=== PATIENT | female | born 1945 | race Caucasian/White ===

== ENCOUNTER 2016-04-19 11:44 | Outpatient (CLI) | payer MEDICARE | END 2016-04-19 11:45 | LOC: NAVSJIPCSP 11:44 | PROVIDERS: ATTEND Internal Medicine | DX: E78.5 Hyperlipidemia, unspecified (principal); F32.9 Major depressive disorder, single episode, unspecified | CPT/HCPCS: 36415; 80061 ==

== ENCOUNTER 2016-08-01 09:56 | Outpatient (CLI) | payer MEDICARE ==
[2016-08-01 13:19] LABS: Cardiac Risk 3.3 (Less than 4.5)
== END 2016-08-01 09:57 ==
LOC: NAVSJIPCSP 09:56
PROVIDERS: ATTEND Internal Medicine
DX: E78.5 Hyperlipidemia, unspecified (principal)
CPT/HCPCS: 36415; 80061

== ENCOUNTER 2016-08-28 12:55 | Emergency (ER) | payer MEDICARE ==
[2016-08-28] MEDS ORDERED: Lidocaine 1% 20 ML MDV ONE (13:06)
[2016-08-28] MEDS ORDERED: Bacitracin Zinc 1 Packet ONE (13:38)
== END 2016-08-28 13:51 | disposition home or self-care (01) ==
LOC: NAV ERS 12:55
DX: S61.210A Laceration without foreign body of right index finger without damage to nail, initial encounter (principal); E78.5 Hyperlipidemia, unspecified; E78.00 Pure hypercholesterolemia, unspecified; I10 Essential (primary) hypertension; J45.909 Unspecified asthma, uncomplicated; F41.9 Anxiety disorder, unspecified; F32.9 Major depressive disorder, single episode, unspecified; Z79.899 Other long term (current) drug therapy; W25.XXXA Contact with sharp glass, initial encounter
CPT/HCPCS: 12001; J2001

== ENCOUNTER 2016-11-14 10:10 | Outpatient (CLI) | payer MEDICARE ==
[2016-11-14 12:42] LABS: #Eosinphils 0.2 thou/uL (0.0-0.7); #Lymphocytes 1.3 thou/uL (1.20-3.40); #Monocytes 0.6 thou/uL (0.11-0.59); #Neutrophils 3.8 thou/uL (1.40-6.50); %Basophils 0.6 % (0.0-1.0); %Eosinophils 3.2 % (0.0-10.0); %Lymphocytes 22.8 % (21.0-51.0); %Monocytes 9.4 % (0.0-10.0); Mean Corpuscular HGB CONC 32.8 g/dL (32.0-36.0); Mean Corpuscular Volume 94.4 fl (81.0-99.0); Mean Platelet Volume 9.4 fL (7.4-10.4); Platelet Count 141 thou/uL (130-400); RBC Distribution Width 11.5 % (11.5-14.5); Red Blood Cell (RBC) Count 4.21 mill/uL (4.20-5.40); White Blood Cell (WBC) Count 5.9 thou/uL (4.8-10.8)
[2016-11-14 13:52] LABS: Bilirubin Negative (Negative); Blood, Urine Trace (Negative); Clarity Clear (Clear); Glucose, Urine (Dipstick) Negative (Negative); Leukocyte Negative (Negative); Nitrite Negative (Negative); Protein, Urine (Dipstick) Negative (Neg-Trace); Urobilinogen 0.2 mg/dL (0.2-1.0)
[2016-11-14 13:56] LABS: ALT (SGPT) 33 U/L (8-55); AST (SGOT) 32 U/L (5-34); Alkaline Phosphatase 77 U/L (40-150); Anion Gap 15 mmol/L (10-20); BUN (Urea Nitrogen) 16 mg/dL (9.8-20.1); Calc. Creatinine Clearance 0 mL/min (70-130); Calcium 8.9 mg/dL (7.8-10.44); Carbon Dioxide 28 mmol/L (23-31); Cardiac Risk 2.8 (Less than 4.5); Chloride 103 mmol/L (98-107); Cholesterol 178 mg/dl (< 200 Desired); Estimated GFR-MDRD 68; Globulin 2.7 g/dL (2.4-3.5); Glucose 79 mg/dL (83-110); HDL Cholesterol 63 mg/dL (>60 Neg Risk); LDL Cholesterol, Calculated 102 mg/dL; Potassium 4.6 mmol/L (3.5-5.1); Protein, Total 6.7 g/dL (6.0-8.3); Sodium 141 mmol/L (136-145); Triglycerides 65 mg/dL (Less than 150)
[2016-11-14 16:00] LABS: Bacteria/HPF None Seen HPF (None Seen); RBC/HPF 0-3 HPF (0-3); Squamous Epithelial 0-3 HPF (0-3); WBC/HPF None Seen HPF (0-3)
[2016-11-14 18:39] LABS: Hep C IgG Ab Non-Reactive (NonReactive); Hep C Index 0.12 S/CO (0-0.79)
== END 2016-11-14 10:11 | disposition home or self-care (01) ==
LOC: NAVSJIPCSP 10:10
PROVIDERS: ATTEND Internal Medicine
DX: I11.9 Hypertensive heart disease without heart failure (principal); E78.5 Hyperlipidemia, unspecified; J45.909 Unspecified asthma, uncomplicated; F32.9 Major depressive disorder, single episode, unspecified; Z79.899 Other long term (current) drug therapy; Z72.89 Other problems related to lifestyle
CPT/HCPCS: 36415; 80053; 80061; 81003; 81015; 85025; 86803

== ENCOUNTER 2017-03-21 16:16 | Outpatient (CLI) | payer MEDICARE ==
--- NOTE | 2017-03-21 20:03 | RAD ---
TWO VIEWS OF THE CHEST 03/21/17 COMPARISON: None. HISTORY: Evaluate for a lung nodule. FINDINGS: There is a suggestion of a subtle round density in the right suprahilar region. This is just inferior to the first costochondral junction. There is no pneumothorax or pleural fluid. There is no lobar co nsolidation or alveolar edema. There is mild increased linear interstitial density. The questionable right suprahilar mass measures up to 2.5 cm in transverse dimension. IMPRESSION: Findings suspicious for a right suprahilar mass. Further assessment via CT examination of the chest i s advised. A report from a prior radiograph of the chest dated 03/05/17 is provided, which also mentions an appa rent nodular density on the right. Again, a chest CT is advised to evaluate for underlying pulmonary parenchymal mass lesion. Code T POS: [facility]
== END 2017-03-21 16:17 | disposition home or self-care (01) ==
LOC: NAV RAD 16:16
PROVIDERS: ATTEND Internal Medicine
DX: R91.1 Solitary pulmonary nodule (principal)
CPT/HCPCS: 71020

== ENCOUNTER 2017-03-23 13:43 | Outpatient (CLI) | payer MEDICARE ==
--- NOTE | 2017-03-23 16:23 | CT ---
CT OF THE THORAX WITH IV CONTRAST: Date: 03/23/17 INDICATION: Abnormal chest radiograph, concern for right lung mass. COMPARISON: Radiograph of the chest dated 03/21/17 and 03/05/17. FINDINGS: There is a pleural based enhancing soft tissue mass overlying the posterior aspect of the superior se gment of the right lower lobe on image 23 of series 3 measuring 2.8 cm. There is associated calcifica tion with this lesion. No additional pleural based mass or pleural based calcification is evident. No enlarged lymph nodes are noted. No suspicious pulmonary nodule is demonstrated. There is mild scat tered centrilobular emphysema. The visualized upper abdomen reveals no acute abnormality. There is mild levoscoliosis of the thoraci c spine. IMPRESSION: 1. Pleural based, mildly enhancing, partially calcified soft tissue mass involving the posterior ple ural surface overlying the superior segment of the right lower lobe. Differential considerations for this finding include sequelae of prior infection or trauma within its location. Alternatively, this m ay be related to prior pleurodesis. Alternatively, findings may be related to a fibrous tumor of the pleura. As a conservative measure, would recommend a follow-up CT examination in 6 months to document stability. 2. Mild centrilobular emphysema. POS: [facility]
== END 2017-03-23 13:44 | disposition home or self-care (01) ==
LOC: NAV CT 13:43
PROVIDERS: ATTEND Internal Medicine
DX: R91.1 Solitary pulmonary nodule (principal); J43.2 Centrilobular emphysema; R91.8 Other nonspecific abnormal finding of lung field
CPT/HCPCS: 36415; 71260; 82565

== ENCOUNTER 2017-04-11 14:46 | Emergency (ER) | payer MEDICARE ==
[2017-04-11 15:35] LABS: #Basophils 0.1 thou/uL (0.0-0.2); #Eosinphils 0.1 thou/uL (0.0-0.7); #Lymphocytes 1.6 thou/uL (1.20-3.40); #Neutrophils 4.5 thou/uL (1.40-6.50); %Basophils 1.4 % (0.0-1.0); %Monocytes 13.2 % (0.0-10.0); %Neutrophils 61.3 % (42.0-75.0); Hemoglobin 12.5 g/dL (12.0-16.0); Mean Corpuscular HGB CONC 32.9 g/dL (32.0-36.0); Mean Corpuscular Hemoglobin 29.9 pg (27.0-31.0); Mean Corpuscular Volume 90.8 fl (81.0-99.0); Mean Platelet Volume 10.6 fL (7.4-10.4); Platelet Count 146 thou/uL (130-400); RBC Distribution Width 11.5 % (11.5-14.5); Red Blood Cell (RBC) Count 4.17 mill/uL (4.20-5.40); White Blood Cell (WBC) Count 7.4 thou/uL (4.8-10.8)
--- NOTE | 2017-04-11 15:40 | RAD ---
CHEST TWO VIEWS: 04/11/17 HISTORY: Cough. Dyspnea. COMPARISON: 03/21/17. FINDINGS: The cardiac silhouette and pulmonary vasculature are unremarkable. Mediastinum is midline. Lobular ma ss projecting over the right suprahilar level on the frontal view is similar in appearance to the pascual or study. No evidence of pneumothorax or pleural fluid. IMPRESSION: Stable CT appearance of the chest including the mass at the right upper chest. No active cardiopulmon isela abnormalities are otherwise demonstrated. POS: [facility]
[2017-04-11 15:45] LABS: Anion Gap 14 mmol/L (10-20); BUN (Urea Nitrogen) 14 mg/dL (9.8-20.1); Calc. Creatinine Clearance 0 mL/min (70-130); Calcium 9.1 mg/dL (7.8-10.44); Carbon Dioxide 23 mmol/L (23-31); Chloride 108 mmol/L (98-107); Estimated GFR-MDRD 73; Glucose 110 mg/dL (83-110); Potassium 4.1 mmol/L (3.5-5.1); Sodium 141 mmol/L (136-145)
== END 2017-04-11 16:19 | disposition home or self-care (01) ==
LOC: NAV ERS 14:46
DX: J06.9 Acute upper respiratory infection, unspecified (principal); I10 Essential (primary) hypertension; J45.909 Unspecified asthma, uncomplicated; F41.9 Anxiety disorder, unspecified; F32.9 Major depressive disorder, single episode, unspecified
CPT/HCPCS: 71020; 80048; 85025; 93005

== ENCOUNTER 2017-06-23 08:30 | Emergency (ER) | payer MEDICARE | END 2017-06-23 09:15 | disposition home or self-care (01) | LOC: NAV ERS 08:30 | DX: S76.111A Strain of right quadriceps muscle, fascia and tendon, initial encounter (principal); S86.911A Strain of unspecified muscle(s) and tendon(s) at lower leg level, right leg, initial encounter; I10 Essential (primary) hypertension; J45.909 Unspecified asthma, uncomplicated; F41.9 Anxiety disorder, unspecified; F32.9 Major depressive disorder, single episode, unspecified; Z79.899 Other long term (current) drug therapy; X58.XXXA Exposure to other specified factors, initial encounter | CPT/HCPCS: 99283 ==